=== PATIENT | male | born 1970 | race Two or more races ===

== ENCOUNTER 2017-11-27 04:51 | Emergency (ER) | payer OTHER ==
[~2017-11-27] VITALS: Ht 172.7 cm; Wt 86.2 kg
[2017-11-27] MEDS ORDERED: COZAAR100 MG (05:21)
[2017-11-27] MEDS ORDERED: KETO10TA2 (05:21)
[2017-11-27] MEDS ORDERED: FLAGYL500MG (05:22)
[2017-11-27] MEDS ORDERED: CIPROFLOXACIN500 M1 (05:23)
== END 2017-11-27 11:31 | disposition home or self-care (01) ==
LOC: ER 04:51
DX: K61.0 Anal abscess (principal)